=== PATIENT | male | born 1985 | race Caucasian/White ===

== ENCOUNTER 2021-12-29 07:35 | Emergency (ER) | payer BC, OTHER ==
--- NOTE | 2021-12-29 07:46 | ERPHSYRPT ---
- History of Present Illness Time Seen by Provider: 12/29/21 07:45 Source: patient Physician History: This is a 36-year-old white male who has history of hypertension and chronic back pain issues and presents with 2-week history of crampy type pain in the left hamstring region. He vaguely recalls some cramps at that time but they resolved per his report but he has been left with this achiness in the area. He did not suffer any traumatic injury or fall that he recalls. He has no history of blood clots. There is no family history of any clotting disorders. Patient has no chest pain and he has no shortness of breath. He has not had a fever. He states he is never had anything like this before. Method of Injury: unknown Occurred: other (2 weeks ago) Quality: intermittent, aching (Mild) Severity of Pain-Max: moderate Severity of Pain-Current: mild (To moderate, intermittent) Lower Extremities Pain: leg: left (Left hamstring) Modifying Factors: Improves With: movement Associated Symptoms: none Allergies/Adverse Reactions: morphine Adverse Reaction (Unknown, Verified 09/12/15 17:57) "FEELS LIKE I'M DYING" Home Medications: Tramadol HCl 50 mg [Ultram 50 mg] 1 tab PO Q6H PRN 12/19/13 [History] Rosuvastatin Calcium 5 mg PO 12/29/21 [History] Hx Tetanus, Diphtheria Vaccination/Date Given: No Hx Influenza Vaccination/Date Given: No Hx Pneumococcal Vaccination/Date Given: No Travel Risk - International Travel Have you traveled outside of the country in past 3 weeks: No - Coronavirus Screening Are you exhibiting any of the following symptoms?: No Close contact with a COVID-19 positive Pt in past 14-21 Days: No - Review of Systems Constitutional: No Symptoms Eyes: No Symptoms Ears, Nose, & Throat: No Symptoms Respiratory: No Symptoms Cardiac: No Symptoms Abdominal/Gastrointestinal: No Symptoms Genitourinary Symptoms: No Symptoms Musculoskeletal: Other (Left hamstring achiness), No Injury Neurological: No Symptoms Psychological: No Symptoms Endocrine: No Symptoms Hematologic/Lymphatic: No Symptoms Immunological/Allergic: No Symptoms All Other Systems: Reviewed and Negative - Past Medical History Pertinent Past Medical History: No Neurological History: No Pertinent History ENT History: No Pertinent History Cardiac History: Hypertension Respiratory History: No Pertinent History Endocrine Medical History: No Pertinent History Musculoskeletal History: Arthritis GI Medical History: No Pertinent History History: No Pertinent History Psycho-Social History: No Pertinent History Male Reproductive Disorders: No Pertinent History Other Medical History: chronic back pain - Past Surgical History Past Surgical History: Yes Other Surgical History: neck surg for abcess,nose surg - Social History Smoking Status: Never smoker Exposure to second hand smoke: Yes Drug Use: none Patient Lives Alone: No - Nursing Vital Signs Nursing Vital Signs: Initial Vital Signs Temperature 97.9 F 12/29/21 07:40 Pulse Rate 94 H 12/29/21 07:40 Respiratory Rate 18 12/29/21 07:40 Blood Pressure 180/106 12/29/21 07:40 O2 Sat by Pulse Oximetry 98 12/29/21 07:40 Pain Scale Pain Intensity 6 - Physical Exam General Appearance: no apparent distress, alert, anxiety Eyes, Ears, Nose, Throat Exam: normal ENT inspection, moist mucous membranes Neck Exam: normal inspection, non-tender, supple, full range of motion Cardiovascular/Respiratory Exam: chest non-tender, no respiratory distress Gastrointestinal/Abdominal Exam: non-tender Back Exam: normal inspection, normal range of motion, No CVA tenderness, No vertebral tenderness Hips Exam: bilateral: non-tender, normal inspection, normal range of motion, no evidence of injury Legs Exam: right leg: non-tender, left leg: soft tissue tenderness (Mid hamstring to palpation), bilateral leg: normal inspection, normal range of motion, no evidence of injury Knees Exam: bilateral knee: non-tender, normal inspection, normal range of motion, no evidence of injury Ankle Exam: bilateral ankle: non-tender, normal inspection, normal range of motion, no evidence of injury Foot Exam: bilateral foot: non-tender, normal inspection, normal range of motion, no evidence of injury Neuro/Tendon Exam: normal sensation, normal motor functions, normal tendon functions, responds to pain, no evidence tendon injury Mental Status Exam: alert, oriented x 3, cooperative Skin Exam: normal color, warm, dry SpO2 Interpretation: normal O2 Delivery: Room Air - Course Nursing assessment & vital signs reviewed: Yes Ordered Tests: Active Orders 24 hr Category Date Time Status BMP Stat Lab 12/29/21 08:17 Completed D-DIMER QUANTITATIVE Stat Lab 12/29/21 08:17 Completed Lab/Rad Data: Laboratory Result Diagrams 12/29/21 08:17 Laboratory Results 12/29/21 12/29/21 Range/Units 08:17 08:17 D-Dimer 0.27 (0.0-0.50) mg/L Sodium 139 (137-145) mmol/L Potassium 3.6 (3.5-5.1) mmol/L Chloride 106 (98-107) mmol/L Carbon Dioxide 23 (22-30) mmol/L Anion Gap 13.4 (5-15) MEQ/L BUN 18 (9-20) mg/dL Creatinine 0.95 (0.66-1.25) mg/dL Estimated GFR > 60.0 ML/MIN Glucose 128 H (74-106) mg/dL Calcium 8.8 (8.4-10.2) mg/dL - Departure Clinical Impression: Pain on movement of skeletal muscle Condition: Stable Critical Care Time: No Referrals: ARIEL LEE [Primary Care Provider] - Follow up/PCP as directed Additional Instructions: May massage area 2-3 times a day. Take your medication as prescribed. Call your primary care provider today to make arrange for follow-up appointment for further evaluation and management. Prescriptions: Prednisone 10 mg [Deltasone 10 mg] 10 mg PO TID #12 tablet Orphenadrine Citrate 100 mg [Norflex 100 MG Tablet] 100 mg PO BID #10 tab
[2021-12-29 07:47] VITALS: O2SAT 98
[2021-12-29 08:32] LABS: ANION GAP 13.4 MEQ/L (5-15); BLOOD UREA NITROGEN 18 mg/dL (9-20); CHLORIDE 106 mmol/L (98-107); Calcium 8.8 mg/dL (8.4-10.2); Carbon Dioxide 23 mmol/L (22-30); Creatinine 1 0.95 mg/dL (0.66-1.25); EST GLOMERULAR FILTRATION RATE > 60.0 ML/MIN; Glucose 128 mg/dL (74-106); Potassium 3.6 mmol/L (3.5-5.1); SODIUM 139 mmol/L (137-145)
[2021-12-29 08:39] VITALS: BP 178/90; PULSE 82
== END 2021-12-29 08:50 | disposition home or self-care (01) ==
LOC: ED 07:35
DX: M79.18 Myalgia, other site (principal); M79.652 Pain in left thigh; I10 Essential (primary) hypertension; Z79.891 Long term (current) use of opiate analgesic; Z79.899 Other long term (current) drug therapy; Z79.52 Long term (current) use of systemic steroids
CPT/HCPCS: 36415; 80048; 85379; 99282